=== PATIENT | male | born 1960 | race Caucasian/White ===

== ENCOUNTER 2018-06-21 09:05 | Emergency (ER) | payer BC ==
[~2018-06-21] VITALS: Ht 175.3 cm; Wt 100.0 kg
[2018-06-21 09:10] VITALS: BP 140/67; PULSE 96; RESP 18; Ht 175.3 cm; Wt 100.0 kg
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
== END 2018-06-21 10:11 | disposition home or self-care (01) ==
LOC: FTE 09:05
DX: S06.0X0A Concussion without loss of consciousness, initial encounter (principal); I10 Essential (primary) hypertension; W22.8XXA Striking against or struck by other objects, initial encounter; Y92.9 Unspecified place or not applicable
CPT/HCPCS: 99282